=== PATIENT | male | born 1975 | race Caucasian/White ===

== ENCOUNTER 2022-03-29 15:35 | Emergency (ER) | payer MEDICARE, OTHER ==
[2022-03-29 15:46] VITALS: BP 130/84
[2022-03-29] MEDS ORDERED: TETANUS/DIPHTHERIA/PERTUSSIS 0.5 ML SYRINGE IM ONE (16:41)
--- NOTE | 2022-03-29 16:44 | ED Physician Documentation ---
History of Present Illness - Stated complaint Stated Complaint: HEAD LAC,GLF IN [place] - Chief complaint Chief Complaint: Laceration - Additonal information Additional information: 46-year-old male was brought to the emergency department for evaluation of a facial contusion after ground-level fall in which she tripped over some gravel on the driveway falling forward. His mom saw the fall. He did not lose consciousness. No seizure activity on scene. At baseline patient is developmentally delayed. 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 Per his mom he takes no prescribed medications. Since the fall he has been behaving mostly at his baseline though he has been more irritable and difficult to redirect. Review of Systems Unable to obtain: Other (Developmental delay) Constitutional: denies: Fever, Chills Eyes: reports: Reviewed and negative Ears: reports: Reviewed and negative Nose: denies: Epistaxis Throat: reports: Reviewed and negative Cardiac: reports: Reviewed and negative Respiratory: reports: Reviewed and negative GI: reports: Reviewed and negative Skin: reports: Abrasion (s) (Forehead) Musculoskeletal: reports: Reviewed and negative Neurologic: reports: Reviewed and negative Psychiatric: reports: Reviewed and negative PD PAST MEDICAL HISTORY - Allergies Allergies/Adverse Reactions: Allergies Allergy/AdvReac Type Severity Reaction Status Date / Time No Known Drug Allergies Allergy Verified 03/29/22 15:46 PD ED PE EXPANDED - General General: Alert - HEENT HEENT: PERRL, Other (Macerated abrasion forehead) - Neck Neck: Supple w/out meningeal sx. No: Adenopathy - Cardiac Cardiac: Regular Rate, Radial strong equal - Respiratory Respiratory: Clear to ausultation sol. No: Distress, Labored - Abdomen Abdomen: Normal Bowel sounds - Derm Derm: Normal color, Warm and dry, Abrasion (s) - Extremities Extremities: Normal. No: Deformity, Tenderness - Neuro Neuro: Alert and Oriented X 3, CNII-XII intact - GCS Eye Opening: Spontaneous Motor: Obeys Commands Verbal: Oriented Total: 15 Results - Vitals Vitals: Vital Signs - 24 hr 03/29/22 15:40 Temperature 36.4 C L Heart Rate 89 Respiratory 16 Rate Blood Pressure 130/84 H O2 Saturation 99 Oxygen O2 Source Room air - Rads (name of study) ct head Radiology: Final report received (No acute intracranial abnormality. Agenesis of the corpus callosum. Hypoplasia of the left cerebellum) PD MEDICAL DECISION MAKING - ED course Complexity details: reviewed results, re-evaluated patient, considered differential, d/w patient, d/w family ED course: 46-year-old male who is developmentally delayed presents emergency department for evaluation of a laceration to his forehead sustained when he tripped on a gravel pile striking his head. There was no loss of consciousness. He is at baseline developmentally delayed due to agenesis of the corpus callosum from . Per his mom he is behaving at his baseline though a little more irritable than usual. CT of the head showed no acute intracranial injury though we do again note the agenesis of the corpus callosum. He does have a laceration that is somewhat macerated to his forehead. I do not think that he would benefit from primary closure as cosmetically this will heal with no further intervention. It was thoroughly cleansed placed with bacitracin. His tetanus was updated today. He is scheduled to move into a senior care in 48 hours time. Departure - Departure Disposition: 01 Home, Self Care Clinical Impression: Fall from ground level Forehead laceration Qualifiers: Encounter type: initial encounter Qualified Code(s): S01.81XA - Laceration without foreign body of other part of head, initial encounter Condition: Stable Record reviewed to determine appropriate education?: Yes Comments: Josh was seen today in the emergency department after a fall at home in which she struck his forehead. He does have a laceration on his forehead as well as his upper lip. Neither of these would benefit from primary closure. It is okay to wash them daily with warm soap and water apply bacitracin or triple antibiotic ointment and a simple bandage. We did do a CT of his head and there is no findings of bruising or bleeding within the brain. You can continue his routine and usual care at this time. Return to the emergency department if you have any concerns that he is behaving abnormally, is excessively sleepy or lethargic or has sudden weakness in his arms or legs
--- NOTE | 2022-03-29 17:24 | CT Report ---
PROCEDURE: HEAD WO INDICATIONS: Facial contusion; Developmental delay TECHNIQUE: Noncontrast 4.5 mm thick angled axial sections acquired from the foramen magnum to the vertex. For r adiation dose reduction, the following was used: automated exposure control, adjustment of mA and/or kV according to patient size. COMPARISON: None. FINDINGS: Image quality: Excellent. CSF spaces: Basal cisterns are patent. No extra-axial fluid collections. Ventricles are normal in size and shape. Brain: There is complete agenesis of the corpus callosum. 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 No midline shift. No intracranial masses or hemorrhage. Díaz-white matter interface is normal. Skull and face: Soft tissue swelling of the right for head, otherwise calvarium and visualized facial bones are intact, without suspicious lesions. Sinuses: Visualized sinuses and mastoids are clear. IMPRESSION: 1. No acute intracranial abnormality. 2. Agenesis of the corpus callosum. 3. Hypoplasia of the left cerebellum. Reviewed by: Zackary Bustillos on 03/29/2022 4:23 PM DANISH Approved by: Zackary Bustillos on 03/29/2022 4:23 PM [id number] Station ID: [id number]
== END 2022-03-29 17:55 | disposition home or self-care (01) ==
LOC: ED 15:35
DX: S01.81XA Laceration without foreign body of other part of head, initial encounter (principal); W01.0XXA Fall on same level from slipping, tripping and stumbling without subsequent striking against object, initial encounter; R62.50 Unspecified lack of expected normal physiological development in childhood; Q04.0 Congenital malformations of corpus callosum
CPT/HCPCS: 90471; 99282; 99284